=== PATIENT | male | born 1945 | race Caucasian/White ===

== ENCOUNTER 2019-04-15 08:14 | Emergency (ER) | payer MEDICARE, OTHER ==
[~2019-04-15] VITALS: Ht 160 cm; Wt 88.9 kg
[2019-04-15 08:18] VITALS: BP 183/91
--- NOTE | 2019-04-15 08:31 | NUR ---
PT W/C ASSISTED TO BED 8 AT THIS TIME.
--- NOTE | 2019-04-15 08:38 | NUR ---
C/O RIGHT ELBOW, R HIP PAIN RADIATING TO RIGHT LEG & RIGHT FOOT NUMBNESS X 1 MONTH. DENIES TRAUMA. AMBULATED WITH CANE. MED HX: ARTHRITIS, HTN, HIGH CHOLESTEROL, GERD MED: NAPROXEN,HYDROCHLOROT, LOVASTATIN,METOPROLOL,OMEPRAZOLE, BENAZEPRIL,GABAPENTIN
[2019-04-15] MEDS ORDERED: KETOROLAC 30 MG/ML VIAL IVP ONE (08:45)
[2019-04-15] MEDS ORDERED: DEXAMETHASONE 10 MG/ML VIAL IVP ONE (08:45)
[2019-04-15 09:24] LABS: BASOPHILS % (AUTO) 0.3 % (0.0-2.0); EOSINOPHILS # (AUTO) 0.2 K/uL (0-0.4); EOSINOPHILS % (AUTO) 2.4 % (0.0-4.0); HEMATOCRIT 43.2 % (36-52); HEMOGLOBIN 14.9 g/dL (12.0-18.0); LYMPHOCYTES % (AUTO) 25.1 % (20.5-51.1); MEAN CORPUSCULAR HEMOGLOBIN 31 pg (27-31); MEAN CORPUSCULAR HGB CONC 35 g/dL (33-37); MEAN CORPUSCULAR VOLUME 88.3 fL (80-94); MONOCYTES # (AUTO) 0.5 K/uL (0.8-1.0); MONOCYTES % (AUTO) 5.8 % (1.7-9.3); NEUTROPHILS # (AUTO) 5.2 K/uL (1.8-7.7); NEUTROPHILS % (AUTO) 66.4 % (42.2-75.2); PLATELET COUNT (AUTO) 206 K/uL (140-450); RED BLOOD CELL COUNT(AUTO) 4.89 MIL/uL (4.20-6.10); RED CELL DISTRIBUTION WIDTH 13.3 % (11.6-13.7); WHITE BLOOD COUNT (AUTO) 7.9 K/uL (4.8-10.8)
[2019-04-15 09:50] LABS: CHLORIDE 103 mmol/L (98-107); POTASSIUM 3.6 mmol/L (3.5-5.1); SODIUM SERUM 141 mmol/L (136-145)
[2019-04-15 09:51] LABS: ANION GAP 11.6 (8-16); CREATININE 0.9 mg/dL (0.7-1.3); GLUCOSE 113 mg/dL (74-106); UREA NITROGEN, BLOOD 15 mg/dL (7-18)
[2019-04-15 09:52] LABS: ALBUMIN 3.9 g/dL (3.4-5.0); ASPARTATE AMINOTRANSFERASE 24 U/L (15-37); TOTAL BILIRUBIN 1.2 mg/dL (0.0-1.0)
--- NOTE | 2019-04-15 10:21 | NUR ---
APPLIED MORIAH WRAP TO RIGHT ELBOW WITHOUT ANY ISSUES
[2019-04-15 10:25] VITALS: BP 164/94
--- NOTE | 2019-04-15 10:25 | NUR ---
Patient discharged with v/s stable. Written and verbal after care instructions given and explained. Patient alert, oriented and verbalized understanding of instructions. Ambulatory with cane. All questions addressed prior to discharge. ID band removed. Patient advised to follow up with PMD. Rx of Tramadol given. Patient educated on indication of medication including possible reaction and side effects. Opportunity to ask questions provided and answered.
== END 2019-04-15 10:25 | disposition home or self-care (01) ==
LOC: MED 08:14
DX: M70.21 Olecranon bursitis, right elbow (principal); Y93.89 Activity, other specified; M54.40 Lumbago with sciatica, unspecified side
CPT/HCPCS: 36415; 73080; 80053; 81002; 85025; 85651; 96374; 96375; 99284; J1100; J1885; Q0092

== ENCOUNTER 2022-03-07 13:34 | Observation (INO) | payer MEDICARE, OTHER ==
[~2022-03-07] VITALS: Ht 154.9 cm; Wt 37.6 kg
[2022-03-07 13:38] VITALS: BP 152/76
[2022-03-07] MEDS ORDERED: NACL 0.9% 1,000 ML IV ONE (13:45)
--- NOTE | 2022-03-07 13:49 | NUR ---
W/C assisted to bed 9
--- NOTE | 2022-03-07 14:10 | NUR ---
76/M BIB DAUGHTER WITH C/O DIZZINESS, CP AND EPISODES OF SOB X2 MONTHS. PER DAUGHTER PATIENT STATING SYMPTOMS INCLUDE NECK PAIN THAT RADIATES DOWN TO WAIST; DIZZINESS HAVE BEEN MORE FREQUENT THE LAST 3 DAYS. DAUGHTER REPORTS DIFFICULTY AMBULATING DUE TO SYMPTOMS. STATES SYMPTOMS MAY BE CAUSED BY TAKING BP MEDICATIONS. PATIENT DENIES CHEST PAIN AT THIS TIME. 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 BED LOCKED IN LOWEST POSITION, SIDE RAILS X 1. PMH: HTN, CHOLESTEROL, ARTHRITIS, SCIATICA MEDS: NKDA SX: DENIES
--- NOTE | 2022-03-07 14:14 | NUR ---
Lab at bedside
--- NOTE | 2022-03-07 14:15 | NUR ---
PATRIA le to CPT Rachelle at ER bedside
--- NOTE | 2022-03-07 14:15 | NUR ---
Note undone in EDM - 03/07/22 at 1501 by MEDGIL 76/M BIB DAUGHTER WITH C/O DIZZINESS, CP AND EPISODES OF SOB X2 MONTHS. PER DAUGHTER PATIENT STATING SYMPTOMS INCLUDE NECK PAIN THAT RADIATES DOWN TO WAIST; DIZZINESS HAVE BEEN MORE FREQUENT THE LAST 3 DAYS. DAUGHTER REPORTS DIFFICULTY AMBULATING DUE TO SYMPTOMS. STATES SYMPTOMS MAY BE CAUSED BY TAKING BP MEDICATIONS. PATIENT DENIES CHEST PAIN AT THIS TIME. 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 BED LOCKED IN LOWEST POSITION, SIDE RAILS X 1. PMH: HTN, CHOLESTEROL, ARTHRITIS, SCIATICA MEDS: NKDA SX: DENIES
[2022-03-07 14:34] LABS: BASOPHILS % (AUTO) 0.4 % (0.0-2.0); EOSINOPHILS # (AUTO) 0.4 K/uL (0-0.4); EOSINOPHILS % (AUTO) 4.8 % (0.0-4.0); HEMATOCRIT 38.7 % (36-52); HEMOGLOBIN 13.1 g/dL (12.0-18.0); LYMPHOCYTES # (AUTO) 2.6 K/uL (2.0-11.5); LYMPHOCYTES % (AUTO) 28.8 % (20.5-51.1); MEAN CORPUSCULAR HEMOGLOBIN 29 pg (27-31); MEAN CORPUSCULAR HGB CONC 34 g/dL (33-37); MEAN CORPUSCULAR VOLUME 86.9 fL (80-94); MONOCYTES # (AUTO) 0.6 K/uL (0.8-1.0); NEUTROPHILS # (AUTO) 5.3 K/uL (1.8-7.7); PLATELET COUNT (AUTO) 193 K/uL (140-450); RED BLOOD CELL COUNT(AUTO) 4.45 MIL/uL (4.20-6.10); RED CELL DISTRIBUTION WIDTH 13.1 % (11.6-13.7)
[2022-03-07 15:00] LABS: ALBUMIN 3.4 g/dL (3.4-5.0); ANION GAP 12.4 (8-16); ASPARTATE AMINOTRANSFERASE 20 U/L (15-37); CARBON DIOXIDE 26.1 mmol/L (21-32); CHLORIDE 104 mmol/L (98-107); CREATININE 1.3 mg/dL (0.6-1.3); GLUCOSE 119 mg/dL (74-106); POTASSIUM 3.5 mmol/L (3.5-5.1); SODIUM SERUM 139 mmol/L (136-145); TOTAL BILIRUBIN 0.6 mg/dL (0.0-1.0); UREA NITROGEN, BLOOD 23 mg/dL (7-18)
--- NOTE | 2022-03-07 15:01 | NUR ---
MIMI (DAUGHTER) [phone] GIVEN STATUS UPDATE.
--- NOTE | 2022-03-07 15:17 | NUR ---
Meds: methotrexate 2.5mg 4/weekly hydrochlorothiazide 25mg daily metoprolol 100mg omperazole 20mg daily lovastatin 20mg daily benazepril 20mg daily gabapentin 300mg bid daily naproxen 500mg bid daily clonidine 0.2mg bid daily
--- NOTE | 2022-03-07 15:55 | NUR ---
Erica called; status update given to family.
--- NOTE | 2022-03-07 15:55 | NUR ---
Family states chest pain, dizziness x 1 week.
[2022-03-07 16:19] LABS: APPEARANCE,URINE CLEAR (CLEAR); BILIRUBIN,URINE NEGATIVE (NEGATIVE); BLOOD, URINE NEGATIVE (NEGATIVE); COLOR,URINE YELLOW (YELLOW); LEUKOCYTE ESTERASE ,URINE NEGATIVE (NEGATIVE); NITRITE, URINE NEGATIVE (NEGATIVE); PH,URINE 6.5 (5.0-9.0); UGLUCOSE NEGATIVE (NEGATIVE)
--- NOTE | 2022-03-07 17:07 | NUR ---
Patient resting in positoin of comfort with cardia cmonitor in place. VSS; respirations even/unlabored. Bed locked in lowest position, side rails x 1.
[2022-03-07] MEDS ORDERED: HYDR-4004 PO (18:18)
[2022-03-07] MEDS ORDERED: MEX2.5 (18:18)
[2022-03-07] MEDS ORDERED: CLON-1170 PO (18:18)
[2022-03-07] MEDS ORDERED: BENA20TA PO (18:18)
[2022-03-07] MEDS ORDERED: METO100T14 PO (18:18)
[2022-03-07] MEDS ORDERED: NAPR-54 PO (18:18)
[2022-03-07] MEDS ORDERED: OMEP-303 PO (18:18)
[2022-03-07] MEDS ORDERED: LOVA20TA8 PO (18:18)
[2022-03-07] MEDS ORDERED: GABA300C PO (18:18)
--- NOTE | 2022-03-07 19:06 | NUR ---
Rosaura SELLERS) from [facility] called. Direct line: [phone]. Clinical information given. States will call back with decision whether to admit, transfer or f/u PCP.
--- NOTE | 2022-03-07 19:14 | NUR ---
Report and transfer of care given to DAILY Regalado
[2022-03-07] MEDS ORDERED: HYDROcodone/APAP 5/325 MG 1 TAB TAB PO PRN (20:50)
[2022-03-07] MEDS ORDERED: ACETAMINOPHEN 325 MG TAB PO PRN (20:50)
[2022-03-07] MEDS ORDERED: ONDANSETRON 4 MG/2 ML VIAL IVP PRN (20:50)
[2022-03-07] MEDS ORDERED: ZOLPIDEM 5 MG TAB PO PRN (20:50)
[2022-03-07] MEDS ORDERED: NITROGLYCERIN 0.4 MG TAB SL PRN (20:50)
[2022-03-07] MEDS ORDERED: MORPHINE SULFATE 2 MG/ML SYR IVP PRN (20:50)
[2022-03-07] MEDS ORDERED: SIMVASTATIN 20 MG TAB PO SCH (21:00)
[2022-03-07] MEDS ORDERED: METOPROLOL 25 MG TAB PO SCH (21:00)
[2022-03-07] MEDS ORDERED: SIMVASTATIN 40 MG TAB ONE (21:22)
--- NOTE | 2022-03-07 21:41 | NUR ---
Patient will be admitted to care of DR IBRAHIM. Admited to TELE. Will go to room 122A. Belongings list completed. Report to DAILY FLETCHER.
[2022-03-07 21:50] VITALS: BP 120/86
--- NOTE | 2022-03-07 21:50 | NUR ---
RECEIVED REPORT FROM ED NURSE. PATIENT IS AWAKE, ALERT, AND COOPERATIVE. RESPIRATION EVEN UNLABORED ON ROOM AIR. NO DISTRESS NOTED. SKIN IS WARM AND DRY. IV PATENT AND INTACT. LUNGS SOUNDS CLEAR UPON AUSCULTATION. HEART RATE REGULAR S1 & S2 NOTED. BOWEL SOUNDS PRESENT IN ALL QUADRANTS. ABDOMEN SOFT AND NON-TENDER. MRSA SCREEN DONE. VITALS WERE TAKEN. ORIENT PATIENT TO ROOM, STAFF, AND CALL LIGHT. ALL SAFETY MEASURES IN PLACE. BED IS AT LOW POSITION. CALL LIGHT WITHIN REACH. BELONGINGS AT BEDSIDE. WILL CONTINUE TO MONITOR
--- NOTE | 2022-03-07 22:10 | NUR ---
SPOKE WITH PT DAUGHTER MIMI, UPDATE WITH CURRENT POC.
--- NOTE | 2022-03-07 22:30 | NUR ---
PT IS HUNGRY FOOD PROVIDED.
[2022-03-08] VITALS: BP 130/76
--- NOTE | 2022-03-08 | NUR ---
VITALS WERE TAKEN
--- NOTE | 2022-03-08 02:21 | NUR ---
MADE ROUNDS, PATIENT IS STABLE NO DISTRESS NOTED.
--- NOTE | 2022-03-08 03:45 | NUR ---
VITALS WERE TAKEN. NO DISTRESS NOTED
[2022-03-08 04:00] VITALS: BP 144/78
--- NOTE | 2022-03-08 05:03 | NUR ---
AM CARE PROVIDED
[2022-03-08 05:49] LABS: BASOPHILS % (AUTO) 0.3 % (0.0-2.0); EOSINOPHILS # (AUTO) 0.5 K/uL (0-0.4); EOSINOPHILS % (AUTO) 7.7 % (0.0-4.0); HEMATOCRIT 42.4 % (36-52); HEMOGLOBIN 14.5 g/dL (12.0-18.0); LYMPHOCYTES % (AUTO) 32.5 % (20.5-51.1); MEAN CORPUSCULAR HEMOGLOBIN 30 pg (27-31); MEAN CORPUSCULAR HGB CONC 34 g/dL (33-37); MEAN CORPUSCULAR VOLUME 86.3 fL (80-94); MONOCYTES # (AUTO) 0.4 K/uL (0.8-1.0); MONOCYTES % (AUTO) 6.5 % (1.7-9.3); NEUTROPHILS # (AUTO) 3.2 K/uL (1.8-7.7); PLATELET COUNT (AUTO) 203 K/uL (140-450); RED BLOOD CELL COUNT(AUTO) 4.91 MIL/uL (4.20-6.10); WHITE BLOOD COUNT (AUTO) 6.1 K/uL (4.8-10.8)
[2022-03-08 07:01] LABS: ALBUMIN 3.7 g/dL (3.4-5.0); ASPARTATE AMINOTRANSFERASE 19 U/L (15-37); CARBON DIOXIDE 26.6 mmol/L (21-32); CHLORIDE 105 mmol/L (98-107); CREATININE 1.2 mg/dL (0.6-1.3); GLUCOSE 117 mg/dL (74-106); POTASSIUM 3.6 mmol/L (3.5-5.1); SODIUM SERUM 142 mmol/L (136-145); TOTAL BILIRUBIN 0.9 mg/dL (0.0-1.0); UREA NITROGEN, BLOOD 19 mg/dL (7-18)
[2022-03-08] MEDS ORDERED: LORazepam 1 MG TAB PO PRN (07:05)
--- NOTE | 2022-03-08 07:30 | NUR ---
RECEIVED PT FROM IN TUBE CONVERSION TECHNICIAN NURSE FOR CONTINUITY OF CARE. PT IS AOX4, ABLE TO MAKE NEEDS KNOWN. RESPIRATIONS EVEN AND UNLABORED. ON ROOM AIR AND NO DISTRESS NOTED. SKIN IS WARM, DRY, AND INTACT. IV SITE ON LAC 20G. SALINE LOCKED. DENIES PAIN AT THE MOMENT. PLAN OF CARE DISCUSSED. SAFETY PRECAUTIONS IN PLACE. CALL LIGHT WITHIN REACH. WILL CONTINUE TO MONITOR.
[2022-03-08 08:00] VITALS: BP 181/93
[2022-03-08] MEDS ORDERED: CLONIDINE HYDROCHLORIDE 0.1 MG TAB PO SCH (09:00)
[2022-03-08] MEDS ORDERED: GABAPENTIN 300 MG CAP PO SCH (09:00)
[2022-03-08] MEDS ORDERED: ENOXAPARIN 40 MG/0.4 ML SYR SUBQ SCH (09:00)
[2022-03-08] MEDS ORDERED: ASPIRIN 81 MG TAB.CHEW PO SCH (09:00)
[2022-03-08] MEDS ORDERED: DOCUSATE SODIUM 100 MG GELCAP PO SCH (09:00)
[2022-03-08] MEDS ORDERED: BENAZEPRIL 20 MG TAB PO SCH (09:00)
[2022-03-08] MEDS ORDERED: METOPROLOL SUCCINATE 50 MG TABER PO SCH (09:00)
[2022-03-08] MEDS ORDERED: CLONIDINE HYDROCHLORIDE 0.1 MG TAB PO PRN (09:15)
--- NOTE | 2022-03-08 09:45 | NUR ---
ALL SCHEDULED MEDS GIVEN. PT IS STABLE. NO DISTRESS NOTED. WILL CONTINUE TO MONITOR.
[2022-03-08 12:00] VITALS: BP 177/89
--- NOTE | 2022-03-08 12:15 | NUR ---
CHECKED ON PATIENT. PT IS STABLE. NO DISTRESS NOTED. WILL CONTINUE TO MONITOR.
--- NOTE | 2022-03-08 12:41 | NUR ---
DC PLANNING: THE PATIENT ADMITTED FROM HOME WITH C/O WEAKNESS, TWO MONTHS OF WORSENING CHEST PAIN, SOB AND DIZZINESS. HE SAW HIS PMD DR ROBINS YESTERDAY PER HIS DAUGHTER JAEL ([phone]), FAMILY DECIDED AFTER THE VISIT TO BRING HIM IN. H/O GERD, HTN, PER HIS DAUGHTER THE PATIENT IS COMPLIANT WITH HTN MEDS. TROPONINS NEGATIVE, PATIENT ADMITTED FOR OBSERVATION AND W/U. CM SPOKE WITH THE PATIENT AND HIS DAUGHTER JAEL AT BEDSIDE, CONFIRMED HIS ADDRESS AND PHONE NUMBER. JAEL IS THE PRIMARY CONTACT. THE PATIENT LIVE IN A SINGLE STORY HOUSE WITH HIS AND WON AND IS INDEPENDENT IN ALL ACTIVITIES. HE USES A CANE TO AMBULATE AND HAS NO H/O HOME HEALTH. DR IBRAHIM INSTRUCTED THE PATIENT AND DAUGHTER ON MEDICATION ADMINISTRATION AT HOME AND CHANGED THE CLONIDINE TO PRN WITH SYSTOLIC PARAMETERS. JAEL STATES THAT THE PATIENT HAS A B/P CUFF AND FAMILY CHECKS V/P NEEDED, SHE IS COMFORTABLE WITH MONITORING AT HOME FOR PRN MEDICATION. FAMILY WOULD LIKE A HOME HEALTH NURSE FOR OVERSIGHT AND P.T. EVAL HAS BEEN ORDERED PRIOR TO DISCHARGE. CM WILL ORDER HOME HEALTH THROUGH HIS INSURANCE [employer], AND WILL FOLLOW FOR NEEDS. Addendum: 03/08/22 at 1423 by Stephany Whitlock DC PLANNING: HOME HEALTH ORDERS AND CLINICAL PACKET FAXED TO [facility], CM WILL FOLLOW UP ON AGENCY AND ARRANGEMENTS.
[2022-03-08 13:33] VITALS: BP 177/89
--- NOTE | 2022-03-08 14:03 | NUR ---
ENDORSED DISCHARGE INSTRUCTIONS TO PATIENT AND DAUGHTER. BOTH PARTIES VERBALIZED UNDERSTANDING AND PATIENT SIGNED DISCHARGE FORMS.
[2022-03-08 15:00] VITALS: BP 148/80
--- NOTE | 2022-03-08 15:00 | NUR ---
PATIENT DISCHARGED OFF THE UNIT. IV CATH AND ID BAND REMOVED. PT ESCORTED OUT WITH DAUGHTER. PT STABLE PRIOR TO DISCHARGE.
== END 2022-03-08 15:00 | disposition home or self-care (01) ==
LOC: MED 13:34 → MTU 20:48
PROVIDERS: ADMIT Internal Medicine; ATTEND Internal Medicine
DX: R53.1 Weakness (principal); R07.9 Chest pain, unspecified; R06.02 Shortness of breath; I10 Essential (primary) hypertension; K21.9 Gastro-esophageal reflux disease without esophagitis
CPT/HCPCS: 36415; 71045; 80053; 81003; 83605; 83735; 83880; 84439; 84443; 84484; 85025; 87040; 87081; 87426; 93005; 96360; 96372; 97116; 97162; 99285; G0378; J1650; J7030; Q0092

== ENCOUNTER 2022-10-16 11:52 | Emergency (ER) | payer MEDICARE, MEDICAID ==
[~2022-10-16] VITALS: Ht 156 cm; Wt 91.3 kg
[~2022-10-16 11:52] MED LIST: BENA20TA PO; GABA300C PO; HYDR-4004 PO; LOVA20TA8 PO; METO100T14 PO; MEX2.5; NAPR-54 PO; OMEP-303 PO
[2022-10-16 11:58] VITALS: BP 140/95
--- NOTE | 2022-10-16 12:01 | NUR ---
Patient ambulated to bed 6 with steady gait.
--- NOTE | 2022-10-16 13:09 | NUR ---
Patient is being evaluated by Dr. An at bedside.
[2022-10-16 13:59] LABS: BASOPHILS % (AUTO) 0.5 % (0.0-2.0); EOSINOPHILS # (AUTO) 0.3 K/uL (0-0.4); EOSINOPHILS % (AUTO) 4.2 % (0.0-4.0); HEMATOCRIT 45.2 % (36-52); HEMOGLOBIN 15.4 g/dL (12.0-18.0); LYMPHOCYTES % (AUTO) 25.9 % (20.5-51.1); MEAN CORPUSCULAR HEMOGLOBIN 29 pg (27-31); MEAN CORPUSCULAR HGB CONC 34 g/dL (33-37); MEAN CORPUSCULAR VOLUME 86.5 fL (80-94); MONOCYTES # (AUTO) 0.5 K/uL (0.8-1.0); MONOCYTES % (AUTO) 6.4 % (1.7-9.3); PLATELET COUNT (AUTO) 213 K/uL (140-450); RED BLOOD CELL COUNT(AUTO) 5.22 MIL/uL (4.20-6.10); RED CELL DISTRIBUTION WIDTH 13.1 % (11.6-13.7); WHITE BLOOD COUNT (AUTO) 7.9 K/uL (4.8-10.8)
[2022-10-16 14:24] LABS: ALBUMIN 4.6 g/dL (3.4-5.0); ANION GAP 12.6 (8-16); ASPARTATE AMINOTRANSFERASE 32 U/L (15-37); CARBON DIOXIDE 29.5 mmol/L (21-32); CHLORIDE 98 mmol/L (98-107); GLUCOSE 115 mg/dL (74-106); POTASSIUM 3.1 mmol/L (3.5-5.1); SODIUM SERUM 137 mmol/L (136-145); TOTAL BILIRUBIN 0.5 mg/dL (0.0-1.0); UREA NITROGEN, BLOOD 21 mg/dL (7-18)
--- NOTE | 2022-10-16 15:02 | NUR ---
Patient being re-evaluated by Dr. Madrigal at bedside.
[2022-10-16 15:30] VITALS: BP 155/83
--- NOTE | 2022-10-16 15:30 | NUR ---
The patient's care was reviewed and supervised by Helga Fleming RN.
--- NOTE | 2022-10-16 15:30 | NUR ---
Patient discharged with v/s stable. Written and verbal after care instructions given. Patient verbalized understanding. Ambulatory with steady gait. All questions addressed prior to discharge. Advised to follow up with PMD.
== END 2022-10-16 15:30 | disposition home or self-care (01) ==
LOC: MED 11:52
DX: M54.2 Cervicalgia (principal); I10 Essential (primary) hypertension; K21.9 Gastro-esophageal reflux disease without esophagitis; M19.90 Unspecified osteoarthritis, unspecified site; Z79.899 Other long term (current) drug therapy; Z79.1 Long term (current) use of non-steroidal anti-inflammatories (NSAID)
CPT/HCPCS: 36415; 70450; 71045; 72125; 80053; 84484; 85025; 85610; 85730; 93005; 99285